=== PATIENT | female | born 1965 | race Caucasian/White ===

== ENCOUNTER 2016-10-29 17:22 | Emergency (ER) | payer MEDICARE, OTHER ==
[2016-10-29 13:55] LABS: BASOPHILS 0.4 %; BASOPHILS ABSOLUTE 0.06 10/3/uL (0.0-0.16); EOSINOPHILS 1.5 %; EOSINOPHILS ABSOLUTE 0.22 10/3/uL (0.0-0.53); ER CBC TAT 0 Hrs 05 Mins; HEMATOCRIT 47.1 % (36.0-48.0); HEMOGLOBIN 14.8 g/dL (12.0-16.0); IMMATURE GRANULOCYTES 0.9 %; IMMATURE GRANULOCYTES ABSOLUTE 0.14 10/3/uL (0.0-0.11); LYMPHOCYTES ABSOLUTE 3.12 10/3/uL (0.67-4.30); MANUAL DIFF NO %; MEAN CORPUS HGB CONC 31.4 g/dL (32.0-36.0); MEAN CORPUSCULAR HEMOGLOB 28.7 pg (26.0-34.0); MEAN CORPUSCULAR VOLUME 91.3 fL (80-100); MONOCYTES 6.3 %; MONOCYTES ABSOLUTE 0.94 10/3/uL (0.21-1.20); NEUTROPHILS 69.9 %; NEUTROPHILS ABSOLUTE 10.35 10/3/uL (2.02-8.40); PLATELET COUNT 210 10/3/uL (150-400); RBC DISTRIBUTION WIDTH 15.1 % (12.0-16.0); RED CELL COUNT 5.16 10/6/uL (4.0-5.6); WHITE BLOOD CELLS 14.8 10/3/uL (4.5-10.5)
[2016-10-29 14:03] LABS: PARTIAL THROMBO TIME 27.5 SEC (22.5-37.2); PROTIME (NOT ORD) 13.4 SEC (12.0-14.5)
[2016-10-29 14:11] LABS: BUN (BLOOD UREA NITROGEN) 12 MG/DL (6-23); CALCIUM, SERUM 8.8 MG/DL (8.5-10.4); CHEST PAIN PROFILE TAT 0 Hrs 21 Mins; CHLORIDE, SERUM 99 MMOL/L (96-112); CO2 (CARBON DIOXIDE) 31 MMOL/L (24-34); CREATININE 0.91 MG/DL (0.55-1.02); GFR AFRICAN AMERICAN 83 ML/MIN (>=60); GFR NON AFRICAN AMERICAN 72 ML/MIN (>=60); POTASSIUM, SERUM 4.1 MMOL/L (3.5-5.3); SODIUM, SERUM 140 MMOL/L (135-148); TROPONIN I <0.02 NG/ML (<0.05)
[2016-10-29 14:13] LABS: GLUCOSE, SERUM 213 MG/DL (60-99)
[~2016-10-29 17:22] MED LIST: *UNABLE1; ADVAIR INH; ADVAIR100 INH; ADVAIR250 INH; AMOXIL875 PO; ASAB PO; ATARAX50B PO; AUG875 PO; BACLOFEN; BACTRONASA NAS; BUDEPRION150 MG PO; CONSTULOSE PO; COREG12 PO; COREG25 PO; COREG3 PO; DEMA20 PO; DORYX100 MG PO; DOXEPIN PO; EFFEX25 PO; EFFEX75 PO; EFFEXOR PO; EFFEXOR XR150 MG PO; EFFEXOR100 MG PO; EFFEXXR75 PO; ELLIPTA; ENULOSE PO; FERROUS SULF325 M1 PO; FLONASE; FLONASE NAS; GABAPENTIN PO; GLUCOPHAGE1000 MG PO; HALF81 PO; HYDROXYZINE PO; INCRUSE ELLIPTA INH; IRON325 MG PO; JANUVIA100 MG PO; KDUR20 PO; KLOR-CON 1010 MEQ PO; KLOR-CON M2020 MEQ PO; L40 PO; LACT30UDL PO; LANTUSCART SC; LEVEMIR SC; LEVOTHYROXIN50 MCG PO; LIOR10 PO; LIPITOR40 PO; LORT7 PO; MOBIC7.5 PO; MORPHINE PO; MSCONT15 PO; MSIMMR15; NEUR400; NEUR400 PO; NEUR800 PO; NEXIUM40 PO; NORCO1 TAB; NORCO1 TAB PO; NOVOLOG SC; OCEAN NAS; P10 PO; P20 PO; PERPHENAZINE PO; PERPHENAZINE2 MG; PERPHENAZINE2 MG OR; PERPHENAZINE2 MG PO; PERPHENAZINE8 MG PO; PHENADOZ25 MG RE; PR25 PO; PRAV10 PO; PRAVASTATIN PO; PRIN10 PO; PRIN5 PO; PROAIR HFA INH; PROVENTSOL INH; PROVHFA INH; RISP2 PO; RISPERDAL IM; RISPERDAL12.5 MG IM; SINEQUAN 50 MG50 MG PO; SPIRIVA INH; SYN.05 PO; TRAZODONE PO; TRAZODONE150 MG PO; VENTOLIN HFA INH; VIST50 PO; VITD PO; WELCHOL 625 MG625 MG OR; WELCHOL 625 MG625 MG PO; WELCHOL625 MG PO; WELL100; WELLBUTRIN; WELLSR100 PO; WELLSR150 PO; WELLXL150 PO; Z-PAK PO; ZESTRIL5 MG PO
== END 2016-10-29 17:33 | disposition home or self-care (01) ==
LOC: ER 17:22
PROVIDERS: Emergency Medicine
DX: J44.9 Chronic obstructive pulmonary disease, unspecified (principal); I10 Essential (primary) hypertension; E11.9 Type 2 diabetes mellitus without complications; K74.60 Unspecified cirrhosis of liver; Z79.4 Long term (current) use of insulin; Z79.82 Long term (current) use of aspirin; Z79.52 Long term (current) use of systemic steroids; Z79.899 Other long term (current) drug therapy
CPT/HCPCS: 71020; 80048; 83735; 83880; 84484; 85025; 85610; 85730; 93005; 94640; 96374; 99285; J2930